=== PATIENT | female | born 1935 | race African-American/Black ===

== ENCOUNTER 2022-11-10 15:08 | Emergency (ER) | payer MEDICARE, MEDICAID, SELFPAY ==
[2022-11-10] VITALS (106 sets, daily range): BP systolic 76–162; BP diastolic 44–99; PULSE 0–149; RESP 0–39; TEMP 30.3–36.9; O2SAT 92–100
--- NOTE | ~2022-11-10 | CT_ITS ---
EXAMINATION: CT brain wo con DATE: 11/10/2022 18:02 INDICATION: Altered mental state. The urinary TECHNIQUE: Computed tomography (CT) of the head was performed without intravenous contrast. The mA wa s adjusted according to patient size. Iterative reconstruction technique was employed. Exam dose: 60 5.33 mGy-cm total exam DLP. COMPARISON: None FINDINGS: Bladder is bilateral vertebral artery, basilar artery and very prominent bilateral carotid siphon internal carotid artery calcifications. There is nonspecific diminished attenuation of the cerebral white matter, likely due to chronic small vessel ischemic changes. No intracranial mass lesion or hemorrhage or cerebrovascular accident is detected. No midline shift o r mass effect effect. No subdural or epidural hematoma. There is central and cortical cerebral and and cerebellar atrophy. No fracture or bone destruction of the cranial vault. Minimal left mastoid air cell opacification. Th e mastoid air cells and included paranasal sinuses are otherwise unremarkable. IMPRESSION: Cerebral atherosclerosis and chronic small vessel ischemic changes of the cerebral white matter Cerebral and cerebellar atrophy No acute intracranial finding Reviewed, dictated and finalized at [facility]. Reviewed, dictated and finalized at location A. EL WORKER
--- NOTE | ~2022-11-10 | XR_ITS ---
XR chest ET placement DATE: 11/10/2022 18:33 INDICATION: Post intubation TECHNIQUE: Portable AP chest on 11/10/2022 at 1830 hours COMPARISON: 11/10/2023 portable AP chest at 1726 hours FINDINGS: ET tube 4.5 cm above jane. NG tube in stomach. Right internal jugular central venous catheter in right atrium. Electrodes overlie the thoracic spinal canal. Cardiomegaly, aortic arch calcification. Pulmonary vascular congestion and redistribution. Prominence of the minor fissure suggesting subpleur al edema. There are bilateral pulmonary infiltrates, primarily in the central and lower lung zones, mildly incr eased since 1726 hours, likely due to pulmonary edema. Pneumonia is not excluded. Discoid atelectasis in the left midlung. Diffuse osteopenia. Degenerative spurring of the thoracic spine. IMPRESSION: ET and NG tubes have been placed and 1726 hours, in satisfactory position Congestive changes, mildly increased since 1726 hours Reviewed, dictated and finalized at [facility]. Reviewed, dictated and finalized at location A. HOUSE OPERATOR IMPRESSION: ET and NG tubes have been placed and 1726 hours, in satisfactory po sition Congestive changes, mildly increased since 1726 hours
--- NOTE | ~2022-11-10 | XR_ITS ---
EXAMINATION: XR chest port-a-cath/central DATE: 11/10/2022 17:30 INDICATION: Central line placement TECHNIQUE: Computed tomography (CT) of the head was performed without intravenous contrast. The mA wa s adjusted according to patient size. Iterative reconstruction technique was employed. Exam dose: mGy -cm total exam DLP. COMPARISON: 11/10/2022 portable AP chest FINDINGS: There is cardiomegaly. Aortic arch calcification. There is prominence of minor fissure suggesting subpleural edema. There is pulmonary vascular congest ion and redistribution. Is mild discoid atelectasis or scarring in the left midlung and mild infiltra te or atelectasis in the perihilar and lower lung zones, left greater than right. Right internal jugular central venous catheter in right atrium. Thoracic spinal leads. Diffuse idiopathic skeletal hyperostosis of the thoracic spine. Diffuse osteop enia. IMPRESSION: Cardiomegaly Congestive changes and bilateral infiltrates. The infiltrates may be due to pulmonary edema and/or pn eumonia, worse on the left Reviewed, dictated and finalized at [facility]. Reviewed, dictated and finalized at location A. OPERATIONS FORESTER IMPRESSION: Cardiomegaly Congestive changes and bilateral infiltrates. The infiltrates may be due to pul monary edema and/or pneumonia, worse on the left
--- NOTE | ~2022-11-10 | XR_ITS ---
Portable chest x-ray Comparison: None Clinical History: Hypotension, lethargy Findings: There is probable mild hazy pulmonary edema pattern bilaterally with minimal fluid in the right minor fissure. Cardiomediastinal silhouette is enlarged. Bones and soft tissues are unremarkab le. Impression: Mild pulmonary edema. Cardiomegaly. Reviewed, dictated and finalized at location . REL STOCK CHECKER Impression: Mild pulmonary edema. Cardiomegaly.
--- NOTE | ~2022-11-10 | XR_ITS ---
XR abdomen NG/feed tube insert DATE: 11/10/2022 18:33 INDICATION: Orogastric tube placement TECHNIQUE: Portable AP view on 11/10/2022 at 1831 hours COMPARISON: None FINDINGS: Orogastric tube tip is in the upper body of the stomach Battery pack overlies left abdomen with leads extending toward the thoracic spinal canal. Multilevel degenerative disease of the lumbar spine. IMPRESSION: Orogastric tube tip in upper body of stomach Reviewed, dictated and finalized at [facility]. Reviewed, dictated and finalized at location A. C D AREA SUPERVISOR
--- NOTE | ~2022-11-10 | CT_ITS ---
EXAMINATION: CTA abd aorta runoff DATE: 11/10/2022 18:09 INDICATION: Cold left lower extremity, unable to Doppler pulse. TECHNIQUE: Computed tomographic angiography (CTA) of the abdominal, pelvis, and both lower extremitie s was performed with 150 mL Omnipaque-350 intravenous contrast. Automated exposure control and iterat jonathan reconstruction technique were employed. The dose-length product was 1580.40 mGy-cm. Maximum inten sity projection 3D-reconstructions of the arteries were created by the technologist on a separate wor kstation. COMPARISON: None. FINDINGS: ABDOMINAL AORTA AND ITS BRANCHES: Atherosclerotic calcification of the abdominal aorta and its major branches. No significant aneurysm. No intramural thrombus. No significant stenosis. No dissection. PELVIC VASCULATURE: Atherosclerotic calcification of the pelvic arteries. No aneurysm. No significant stenosis. RIGHT LOWER EXTREMITY VASCULATURE: Status post [id number] amputation. Atherosclerotic arterial calcifications. No significant stenos is. LEFT LOWER EXTREMITY VASCULATURE: Atherosclerotic calcification. Severe focal stenosis in the mid superficial femoral artery, with foca l sections of moderate stenosis more distally. Motion artifact at the level of the knee partially obs cures the distal popliteal artery and trifurcation. The posterior tibial artery is occluded, likely a t the level of the trifurcation. Multifocal areas of absent flow in the anterior tibial artery, with some preservation of flow versus reconstitution distally, and flow noted below the level of the ankle . Flow is preserved in a narrow caliber peroneal artery below the level of the ankle. ADDITIONAL FINDINGS: Cardiomegaly. Bilateral pleural effusions. Bibasilar atelectasis. Gallbladder hydrops with wall hyper emia and pericholecystic fluid. Heterogeneous 2.4 cm pancreatic head mass. Bilateral renal atrophy. B ilateral renal cysts. Small volume ascites. The bladder is decompressed by a Jackson. Diffuse subcutane ous edema. Rim-enhancing fluid collection measuring 6.9 x 5.3 cm in the distal aspect of the right fe moral stump. IMPRESSION: 1. Occluded left posterior tibial artery. Occlusion/near occlusion of the proximal and mid left ante rior tibial artery, with preservation or reconstitution of flow distally. Severe focal stenosis in th e mid left femoral artery. Two vessel flow below the level of the left ankle. 2. Gallbladder hydrops, with wall hyperemia and pericholecystic fluid. Correlate with biliary labs an d right upper quadrant pain/tenderness. 3. 6.9 cm rim-enhancing fluid collection in the right femoral above knee amputation stump, which may represent a postsurgical collection versus abscess. 4. 2.4 cm pancreatic head mass, recommend MRI of the pancreas when the patient's clinical condition p ermits. 5. Anasarca. Reviewed, dictated and finalized at location K. GER OF BROADCAST CONTENT IMPRESSION: 1. Occluded left posterior tibial artery. Occlusion/near occlusion of the prox imal and mid left anterior tibial artery, with preservation or reconstitution o f flow distally. Severe focal stenosis in the mid left femoral artery. Two vess el flow below the level of the left ankle. 2. Gallbladder hydrops, with wall hyperemia and pericholecystic fluid. Correlat e with biliary labs and right upper quadrant pain/tenderness. 3. 6.9 cm rim-enhancing fluid collection in the right femoral above knee amputa tion stump, which may represent a postsurgical collection versus abscess. 4. 2.4 cm pancreatic head mass, recommend MRI of the pancreas when the patient' s clinical condition permits. 5. Anasarca.
--- NOTE | ~2022-11-10 | XR_ITS ---
EXAMINATION: XR chest ET placement DATE: 11/11/2022 09:06 INDICATION: Cardiac arrest. Endotracheal tube placement. Hypoxia. TECHNIQUE: frontal view of the chest was obtained. COMPARISON: Chest radiograph dated 11/10/2022 FINDINGS: Endotracheal tube tip 4.7 cm above the jane. Nasogastric tube with proximal side port in the body o f the stomach and distal tip collimated beyond the inferior margin of the [id number]. Right internal corrosion specialist al jugular central venous catheter with distal tip in the right atrium. Persistent interstitial and airspace opacities in the bilateral mid and lower lung zones and favor pu lmonary edema over pneumonia. Additional linear discoid atelectasis in the bilateral mid lung zones. Small bilateral pleural effusions. No pneumothorax. Cardiomegaly. There are a pair of spinal stimulat or leads projecting over the central canal of the mid to lower thoracic spine with distal tips at the level of T6 and T7. IMPRESSION: 1. Persistent opacities in the bilateral mid and lower lung zones and favor congestive heart failure related pulmonary edema over pneumonia. 2. Small bilateral pleural effusions. 3. Cardiomegaly. Reviewed, dictated and finalized at location A. SQL DEVELOPER IMPRESSION: 1. Persistent opacities in the bilateral mid and lower lung zones and favor con gestive heart failure related pulmonary edema over pneumonia. 2. Small bilateral pleural effusions. 3. Cardiomegaly.
--- NOTE | 2022-11-10 15:26 | ECG_ITS ---
Measurements Intervals Phillips Rate: 61 P: AR: 0 QRS: -11 QRSD: 68 T: 95 QT: 352 QTc: 357 Interpretive Statements ATRIAL FIBRILLATION BASELINE ARTIFACT LOW QRS VOLTAGE ABNORMAL ECG NO PREVIOUS ECG AVAILABLE FOR COMPARISON Electronically Signed On 11-12-2022 15:36:02 LENS FINISHER by Ramon Mobley M.D.
[2022-11-10 15:41] LABS: Glucose Point of Care 92 mg/dl (65-105)
--- NOTE | 2022-11-10 15:51 | ED.WEAKNESS ---
HPI - Weakness General Chief complaint: Weakness <Corrine Ocampo PA-C - Last Filed: 11/11/22 20:00> Stated complaint: lethargy <NAEEM Siddiqui Last Filed: 11/11/22 20:00> Time Seen by Provider: 11/10/22 15:21 <Corrine Ocampo PA-C - Last Filed: 11/11/22 20:00> Source: patient and EMS <NAEEM Siddiqui Last Filed: 11/11/22 20:00> Mode of arrival: EMS <NAEEM Siddiqui Last Filed: 11/11/22 20:00> Limitations: altered mental status <NAEEM Siddiqui Last Filed: 11/11/22 20:00> History of Present Illness HPI Narrative: This is a 86 year old female that presents to the ER for lethargy. Reportedly was in the middle of her dialysis treatment and started to become less responsive. They sent her in for further evaluation. She is responsive to sternal rub. Unable to provide any history. <NAEEM Siddiqui Last Filed: 11/11/22 20:00> Related Data Home medications: Home Medications Medication Instructions Recorded Confirmed acetaminophen 500 mg tablet mg 11/11/22 albuterol sulfate 90 mcg/actuation inhalation 11/11/22 aerosol inhaler apixaban 2.5 mg tablet (Eliquis) mg 11/11/22 atorvastatin 40 mg tablet mg 11/11/22 gabapentin 100 mg capsule mg 11/11/22 levetiracetam 500 mg tablet mg PO 11/11/22 levothyroxine 200 mcg tablet mcg 11/11/22 midodrine 10 mg tablet mg 11/11/22 mirtazapine 7.5 mg tablet mg 11/11/22 pantoprazole 40 mg tablet,delayed mg PO 11/11/22 release <NAEEM Siddiqui Last Filed: 11/11/22 20:00> Allergies/Adverse reactions: Allergies Allergy/AdvReac Type Severity Reaction Status Date / Time enalaprilat [From Vasotec] Allergy Other Verified 11/10/22 16:47 oxaprozin [From Daypro] Allergy Other Verified 11/10/22 16:47 <Corrine Ocampo PA-C - Last Filed: 11/11/22 20:00> Review of Systems Review of Systems: ROS unobtainable: Yes unobtainable due to mental status <Corrine Ocampo PA-C - Last Filed: 11/11/22 20:00> PMFSH Past Medical History Medical History: Medical History (Updated 11/12/22 @ 00:00 by Adelina Mcnulty) End-stage renal disease on hemodialysis Hypotension of hemodialysis Hypothyroidism Osteomyelitis Peripheral artery disease Peripheral neuropathy <NAEEM Siddiqui Last Filed: 11/11/22 20:00> Surgical History Surgical History: Surgical History (Updated 11/11/22 @ 00:37 by Mehreen Carpio DO) Above knee amputation of right lower extremity Status post cataract extraction of both eyes with insertion of intraocular lens Status post creation of arteriovenous fistula <Corrine Ocampo PA-C - Last Filed: 11/11/22 20:00> Family History Family History: Family History Other Unknown family medical history <Corrine Ocampo PA-C - Last Filed: 11/11/22 20:00> Social History Social History: Social History (Updated 11/11/22 @ 00:38 by Mehreen Carpio DO) Social History: The family reports that the patient lives at a retirement. She has never smoked or drink alcohol to their knowledge. The patient's son who was the power of assistant city attorney states that the patient was post be a DNR/DNI however the patient's advanced directive paperwork from both dialysis center and the retirement indicated the patient was a full code. At this time the family states that they would not want the patient to have CPR again if her heart were to stop. She does remain intubated at this time. Smoking status: Never smoker Living arrangements: retirement <Corrine Ocampo PA-C - Last Filed: 11/11/22 20:00> Exam Narrative: GENERAL: Lethargic, well-nourished HEAD: Normocephalic, atraumatic. EYES: PERRLA and EOMI. ENT: Nares clear, no rhinorrhea or epistaxis. Mucous membranes moist. Oropharynx without tonsillar hypertrophy exudate or other lesions. Bilateral TMs pearly galaviz non-bulging NECK: Supple. No kulwinder
[2022-11-10] MEDS: SODIUM CHLORIDE 0.9% IV 500 ML 999 ML IV CONT (16:00)
[2022-11-10 16:38] LABS: Basophils Percent Auto 0.9 % (0.2-1.2); Eosinophils Absolute Auto 0.1 K/mm3 (0-0.3); Eosinophils Percent Auto 2.9 % (0-4.4); Hematocrit 29.2 % (37.0-47.0); Hemoglobin 8.9 g/dL (12.0-15.0); Immature Granulocyte Absolute 0.01 K/mm3 (0.00-0.031); Immature Granulocyte Percent A 0.3 % (0-0.5); Immature Platelet Fraction Pct 15.4 % (0.9-11.2); Lymphocytes Absolute Auto 0.67 K/mm3 (0.9-3.2); Lymphocytes Percent Auto 19.3 % (18.3-44.2); Mean Corpuscular HGB Conc 30.5 g/dl (32-36); Mean Corpuscular Hemoglobin 33.3 pg (26-34); Mean Corpuscular Volume 109.4 fl (80-100); Mean Platelet Volume 13.1 fl (7.4-10.4); Monocytes Absolute Auto 0.4 K/mm3 (0.1-0.6); Monocytes Percent Auto 11.5 % (2.6-8.5); Neutrophils Absolute Auto 2.3 K/mm3 (1.3-6.7); Neutrophils Percent Auto 65.1 % (45.5-73.1); Platelet Count Result 94 k/mm3 (150-375); Red Blood Count 2.67 M/mm3 (4.2-5.4); Red Cell Distribution Width 18.7 % (11.5-14.5); White Blood Count 3.5 K/mm3 (4.5-10.0)
[2022-11-10 16:45] LABS: INR 1.2; Prothrombin Time 14.7 Seconds (11.1-14.7)
[2022-11-10 16:46] LABS: Partial Thromboplastin Time 41.5 SECONDS (22.3-36.8)
[2022-11-10 16:48] LABS: Albumin Level 3.3 g/dL (3.5-5.1); Alkaline Phosphatase 150 U/L (38-126); Anion Gap 5 mmol/L (8-16); Aspartate Amino Transferase 41 U/L (14-36); Bilirubin,Total 0.7 mg/dL (0.2-1.3); Blood Urea Nitrogen 17 mg/dL (7-17); CRP 2.3 mg/dL (<1.0); Calcium 8.3 mg/dL (8.4-10.2); Carbon Dioxide 35 mmol/L (22-30); Chloride 96 mmol/L (98-107); Estimated Glomerular Filt Rate 24; Ethanol < 10 mg/dL (<10); Glucose 91 mg/dL (65-110); Potassium 4.3 mmol/L (3.4-5.0); Sodium 136 mmol/L (137-145)
[2022-11-10 16:51] LABS: Macrocytosis 1+ (NORMAL); Platelet Estimate Decreased (Adequate)
[2022-11-10 16:52] LABS: Ovalocytes 1+ (NORMAL); Schistocytes None Seen (NORMAL); Target Cells 1+ (NORMAL)
--- NOTE | 2022-11-10 16:55 | PC.NURSE ---
ERP and Pa attempting central line insertion.
[2022-11-10 17:04] LABS: Alanine Aminotransferase 22 U/L (6-35)
[2022-11-10 18:05] LABS: Lactic Acid Reflex 1.3 mmol/L (0.7-2.0)
--- NOTE | 2022-11-10 18:10 | PC.NURSE ---
see code sheet
--- NOTE | 2022-11-10 18:17 | PC.NURSE ---
[address] on stretcher and RN. pt. on portable monitor. pt. unresponsive, not answering questions, pt, HR dropped to 30 no pulse felt. RN started cpr. code called erp at bedside. 1814 pt. hitting staff during compressions pt. found to be in sinus tach at 137 erp asked RN to set up for pt. intubation. 1817 20 mg etomidate administered ivp vorb ERP ganga 1818 100 mg rocuronium administered ivp vorb erp ganga. 1818 erp intubated pt. w/ 7.5 et tube measuring 22 lip. erp reports bilat breath sounds and good color change.
[2022-11-10 18:43] LABS: Influenza A QL RT-PCR Negative (Negative); Influenza B QL RT-PCR Negative (Negative); SARS-CoV-2 RNA PCR Negative
--- NOTE | 2022-11-10 19:10 | PC.NURSE ---
Patient report received from JAYRO Soto. All questions answered and care of patient assumed.
[2022-11-10 19:29] LABS: Glucose Point of Care 112 mg/dl (65-105)
[2022-11-10 19:45] LABS: Alveolar/Arterial O2 Gradient 340.3 mmHg; Base Excess ABG 8.1 mEq/l (+/-2.0); Fractional Inspired Oxygen 100 %; HCO3 ABG 29.8 mEq/l (22.0-26.0); Methemoglobin ABG 0.3 %THb (0-1.5); Oxygen Content ABG 13.6 %vol (16.0-22.0); Oxygen Saturation ABG 99.8 % (95.0-100.0); PCO2 ABG 30.8 mmHg (35.0-45.0); PO2 ABG 341.9 mmHg (80.0-100.0); PO2 FiO2 Ratio Arterial Blood 3.42 %; Reduced Hemoglobin 0.7 %THb (0-5.0); Total Hemoglobin 9.2 g/dL (12.0-18.0)
[2022-11-10 19:49] LABS: Device VENTILATOR; Modified Allen's Test Pass; Site Drawn RIGHT RADIAL; pH ABG 7.604 (7.350-7.450)
[2022-11-10 19:50] LABS: Arterial Blood Gas PEEP 5 cmH2O; Arterial Blood Gas Tidal Volume 350 ml; Arterial Blood Gas Vent Mode CMV; Arterial Blood Gas Ventilator rate 20 /MIN
[2022-11-10 20:26] LABS: Lipase 93 U/L (23-300)
--- NOTE | 2022-11-10 20:59 | PC.NURSE ---
Hospitalist at bedside to assess pt.
[2022-11-10 21:03] LABS: Total Triiodothyronine (T3) 0.61 NG/ML (0.97-1.69)
--- NOTE | 2022-11-10 21:50 | PC.NURSE ---
RT at bedside.
[2022-11-10] MEDS: RAPID SEQUENCE INTUBATION KIT 1 EACH (21:54)
[2022-11-10] MEDS: SODIUM CHLORIDE 0.9% IV 500 ML 999 ML (22:40)
[2022-11-10] MEDS: NOREPINEPHRINE 8 MG/D5W 250 ML 8 MG/250 ML BAG 9.38 MG IV CONT (23:56)
[2022-11-11] VITALS (236 sets, daily range): BP systolic 48–164; BP diastolic 29–98; PULSE 0–115; RESP 0–35; TEMP 35.3–37.1; O2SAT 11–100
--- NOTE | 2022-11-11 00:03 | PM.IMCN ---
Assessment and Plan Assessment and plan (1) Septic shock: Code(s): A41.9 - Sepsis, unspecified organism; R65.21 - Severe sepsis with septic shock Status: Acute (2) Cardiac arrest: Code(s): I46.9 - Cardiac arrest, cause unspecified Status: Acute (3) Cardiac arrest with successful resuscitation: Code(s): I46.9 - Cardiac arrest, cause unspecified Status: Acute (4) Mass of pancreas: Code(s): K86.89 - Other specified diseases of pancreas Status: Acute (5) Femoral artery occlusion, left: Code(s): I70.202 - Unspecified atherosclerosis of [place] arteries of extremities, left leg Status: Acute (6) End-stage renal disease on hemodialysis: Code(s): N18.6 - End stage renal disease; Z99.2 - Dependence on renal dialysis Status: Acute (7) Above knee amputation of right lower extremity: Code(s): S78.111A - Complete traumatic amputation at level between right hip and knee, initial encounter Status: Acute Plan Patient has septic shock. Potential sources of infection include bacteremia given patient is dialysis patient has AV fistula in place she is at high risk for bacteremia. However she also has a 5.3 cm rim enhancing collection in the stump of her right above the amputation site so superimposed infection cannot be excluded. Patient was started on empiric antibiotic therapy with cefepime and vancomycin. Blood cultures have been obtained. The patient is no longer profoundly hypothermic due to Nicholas Hugger. Lactic acid was unremarkable. Blood pressures have stabilized on Levophed. I would avoid further IV fluid boluses given patient's history of end-stage renal disease with absent urine output at baseline. Given that the patient had recent surgical procedure at outside facility the patient will benefit from returning to said facility for management by the surgical team at that facility. Patient does have femoral arterial occlusion which he is likely chronic or acute on chronic in nature. She is not clinically stable for acute vascular intervention at this time. The vascular surgeon at the outside facility did not want the patient placed on heparin due to high risk of possible intercranial bleed and difficulty assessing the patient's neurologic status given that she is intubated and sedated. The patient had cardiac arrest with successful resuscitation. Differential for patient's cardiac arrest includes unanticipated cardiac arrhythmia given patient's chronic illness verses result of septic shock. Patient is not following commands but is responsive. I would recommend targeted temperature therapy but the patient was already profoundly hypothermic on presentation to the ER and I suspect this severe hypothermia is likely what contributed to the patient's cardiac arrest. Given the patient's overall poor baseline medical condition her prognosis is poor. CT demonstrated possible pancreatic mass. Patient is not stable for evaluation of this at this time. I did not know about the intra-abdominal mass at the time I talked to the patient's family and I do not know if they are aware of the pancreatic mass at this time. On exam the patient has protuberant eyes and the family states that it this is due to the patient's thyroid disease. However patient is actually noted to be significantly hypothyroid. On review external medication reconciliation the patient was previously on 200 mcg of levothyroxine as outpatient. Will give the patient 1 dose of 150 mg of IV levothyroxine. Patient does have end-stage renal disease on hemodialysis. Her electrolytes are currently stable. No need for emergent dialysis. Stress ulcer prophylaxis provided with Protonix 40 mg IV daily. 150 minutes spent in critical care activities. This includes multiple discussions with ER team, hotel maintenance technician and nursing screen making supervisor. Due to a high probability of clinically significant, life threatening deterioration,
--- NOTE | 2022-11-11 00:28 | PC.NURSE ---
Levophed gtt decreased to 4 mcg/min at this time r/t b/p of 159/91.
[2022-11-11] MEDS: FENTANYL 2,500MCG/NS250ML(*CRX 2,500 MCG/250 ML BAG IV CONT (00:43)
[2022-11-11] MEDS: SODIUM CHLORIDE 0.9% IV 1,000 ML 150 ML IV CONT (00:45)
[2022-11-11] MEDS: MIDAZOLAM HCL (*CRX) 2 MG/2 ML VIAL IV PUSH ×2 (01:10→04:15)
[2022-11-11] MEDS: MIDAZOLAM 100MG/NS 100ML(*CRX) 100 MG/100 ML BAG IV CONT (02:18)
--- NOTE | 2022-11-11 04:53 | PC.NURSE ---
spoke with MD Nam and primary RN about titration for Fentanyl and Versed. See titration documentation
[2022-11-11] MEDS: LEVOTHYROXINE SODIUM INJ 100 MCG/5 ML VIAL 150 MCG IV PUSH (06:52)
--- NOTE | 2022-11-11 07:00 | PC.NURSE ---
Assumed care of pt. at this time. Report from JAYRO Rodrigues
[2022-11-11 07:19] LABS: Add Urine Microscopic? YES; Appearance Urine Cloudy (Clear); Bilirubin Urine 1+ (Negative); Blood Urine 3+ (Negative); Color Urine Yellow (Yellow); Glucose Urine UA Negative (Negative); Ketones Urine Trace mg/dL (Negative); Leukocyte Esterase Ur 3+ LEU/UL (Negative); Nitrate Urine Positive (Negative); Protein Urine 3+ mg/dL (Negative); Urobilinogen Urine 0.2 mg/dL (<2.0)
--- NOTE | 2022-11-11 07:26 | PC.NURSE ---
Patient report given to JAYRO Soto. All questions answered and care of patient transferred.
[2022-11-11 07:33] LABS: Bacteria Urine Trace /hpf; Mucus Urine Rare /lpf; RBC Urine >75 /hpf (0-2); Squamous Epithelial Cell Urine Few /hpf (Few); WBC Urine >75 /hpf
--- NOTE | 2022-11-11 07:34 | PC.NURSE ---
Patient's son Aquilino contacted with update. Verbal consent received to obtain records from [facility].
[2022-11-11 07:36] LABS: Amphetamine Screen Urine Negative (Negative); Barbiturate Screen Urine Negative (Negative); Benzodiazepines Screen Urine Negative (Negative); Cannabinoid Screen Urine Negative (Negative); Cocaine Screen Urine Negative (Negative); Methadone Screen Urine Negative (Negative); Opiate Screen Urine Negative (Negative); Phencyclidine Screen Urine Negative (Negative)
--- NOTE | 2022-11-11 09:13 | PC.NURSE ---
pt. pulse oxygen low 80's pt. fio2 increased to 60% erp made aware
[2022-11-11 09:17] LABS: Basophils Percent Auto 0.5 % (0.2-1.2); Eosinophils Percent Auto 0.7 % (0-4.4); Hematocrit 26.9 % (37.0-47.0); Hemoglobin 8.4 g/dL (12.0-15.0); Immature Granulocyte Absolute 0.02 K/mm3 (0.00-0.031); Immature Granulocyte Percent A 0.3 % (0-0.5); Immature Platelet Fraction Pct 7.4 % (0.9-11.2); Lymphocytes Absolute Auto 0.63 K/mm3 (0.9-3.2); Lymphocytes Percent Auto 10.8 % (18.3-44.2); Mean Corpuscular HGB Conc 31.2 g/dl (32-36); Mean Corpuscular Hemoglobin 33.5 pg (26-34); Mean Corpuscular Volume 107.2 fl (80-100); Mean Platelet Volume 11.2 fl (7.4-10.4); Monocytes Absolute Auto 0.7 K/mm3 (0.1-0.6); Monocytes Percent Auto 11.2 % (2.6-8.5); Neutrophils Absolute Auto 4.5 K/mm3 (1.3-6.7); Neutrophils Percent Auto 76.5 % (45.5-73.1); Nucleated Red Blood Cells Perc 0.3 % (0.0-0.2); Platelet Count Result 102 k/mm3 (150-375); Red Blood Count 2.51 M/mm3 (4.2-5.4); White Blood Count 5.8 K/mm3 (4.5-10.0)
[2022-11-11 09:25] LABS: Alanine Aminotransferase 20 U/L (6-35); Albumin Level 2.8 g/dL (3.5-5.1); Alkaline Phosphatase 130 U/L (38-126); Anion Gap 8 mmol/L (8-16); Aspartate Amino Transferase 41 U/L (14-36); Bilirubin,Total 0.9 mg/dL (0.2-1.3); Blood Urea Nitrogen 20 mg/dL (7-17); Carbon Dioxide 26 mmol/L (22-30); Chloride 100 mmol/L (98-107); Estimated CRCL calculation 9 ml/min; Estimated Glomerular Filt Rate 19; Glucose 156 mg/dL (65-110); Potassium 3.7 mmol/L (3.4-5.0); Sodium 134 mmol/L (137-145)
[2022-11-11 09:40] LABS: Anisocytosis 1+ (NORMAL); Ovalocytes 1+ (NORMAL); Platelet Estimate Adequate (Adequate); Target Cells 1+ (NORMAL)
[2022-11-11 09:41] LABS: Schistocytes None Seen (NORMAL)
[2022-11-11] MEDS: HEPARIN SODIUM 5,000 UNITS/ML VIAL 5000 UNITS SUB-Q (10:17)
[2022-11-11] MEDS: PANTOPRAZOLE SODIUM IV 40 MG VIAL IV PUSH (10:20)
[2022-11-11 10:47] LABS: Alveolar/Arterial O2 Gradient 307.5 mmHg; Base Excess ABG 5.4 mEq/l (+/-2.0); Fractional Inspired Oxygen 90 %; HCO3 ABG 25.3 mEq/l (22.0-26.0); Oxygen Content ABG 14.6 %vol (16.0-22.0); Oxygen Saturation ABG 99.8 % (95.0-100.0); Oxyhemoglobin 98.3 % THb (90.0-100.0); PO2 ABG 310.6 mmHg (80.0-100.0); PO2 FiO2 Ratio Arterial Blood 3.45 %
[2022-11-11 10:50] LABS: Arterial Blood Gas Ventilator rate 20 /MIN; Device VENTILATOR; Modified Allen's Test Pass; Site Drawn RIGHT BRACHIAL
[2022-11-11 10:51] LABS: Arterial Blood Gas PEEP 6 cmH2O; Arterial Blood Gas Tidal Volume 350 ml; Arterial Blood Gas Vent Mode CMV
--- NOTE | 2022-11-11 11:44 | PC.NURSE ---
pt. son at bedside. ERP at pt. bedside provided education and information in regards to pt. status. pt. family member reports he would like to make some phone call to family. pt. guided to family service room and informed to ask for assistance if he needs it.
--- NOTE | 2022-11-11 12:44 | PC.NURSE ---
pt. additional family at bedside. RN educated pt. family on pt. status. questions answered.
--- NOTE | 2022-11-11 14:24 | PC.NURSE ---
called the [facility] [id number], no bed for today.
--- NOTE | 2022-11-11 15:30 | PC.NURSE ---
pt. refusing hospice states he would like to transition pt. to comfort care and start the end of life process at this time. ERP made aware. of pt. requests.
--- NOTE | 2022-11-11 16:20 | PC.NURSE ---
per family request pt. made comfort care. all life sustaining measures have been stopped. pt. given medication for anxiety and pain. RT removed pt. ET tube.
[2022-11-11] MEDS: LORazepam INJ (*CRX) 2 MG/ML VIAL 1 MG IV PUSH ×2 (16:36→16:55)
[2022-11-11] MEDS: MORPHINE SULFATE (*CRX) 2 MG/ML INJ IV PUSH (16:36)
[2022-11-11] MEDS: MORPHINE SULFATE (*CRX) 2 MG/ML INJ 4 MG IV PUSH (17:02)
[2022-11-11] MEDS: SCOPOLAMINE 1.5 MG PATCH TRANSDERM (17:02)
--- NOTE | 2022-11-11 17:34 | PC.NURSE ---
ERP at bedside. pt. has no pulses SAL Stout pt. at [phone]
--- NOTE | 2022-11-11 17:36 | PC.NURSE ---
TID [id number]
--- NOTE | 2022-11-11 17:50 | PC.NURSE ---
pt.. belongings given to Vaishali and conner pt. family.
--- NOTE | 2022-11-11 18:07 | PC.NURSE ---
spoke w/ Aram at [facility] pt. information and son information given
--- NOTE | 2022-11-11 18:45 | PC.NURSE ---
all lines, tubes and drains removed from pt. [place] [facility] [place]
== END 2022-11-11 18:45 | disposition expired ==
PROVIDERS: Physician Assistant; Emergency Provider Emergency Medicine
DX: A41.9 Sepsis, unspecified organism (principal); R65.21 Severe sepsis with septic shock; I46.9 Cardiac arrest, cause unspecified; N18.6 End stage renal disease; Z99.2 Dependence on renal dialysis; K86.89 Other specified diseases of pancreas; I70.202 Unspecified atherosclerosis of native arteries of extremities, left leg; Z20.822 Contact with and (suspected) exposure to COVID-19; Z89.611 Acquired absence of right leg above knee; Z98.42 Cataract extraction status, left eye; Z98.41 Cataract extraction status, right eye; Z96.1 Presence of intraocular lens; G62.9 Polyneuropathy, unspecified; Z79.01 Long term (current) use of anticoagulants; Z79.899 Other long term (current) drug therapy; I48.91 Unspecified atrial fibrillation; I51.7 Cardiomegaly; J81.1 Chronic pulmonary edema; I67.2 Cerebral atherosclerosis; K82.1 Hydrops of gallbladder
CPT/HCPCS: 31500; 36415; 36556; 36600; 51702; 70450; 71045; 75635; 80053; 80307; 81001; 82375; 82805; 82948; 83050; 83605; 83690; 84439; 84443; 84480; 85025; 85055; 85610; 85730; 86140; 87040; 87086; 87636; 93005; 96361; 96365; 96366; 96367; 96368; 96372; 96375; 96376; 99291; A9270; C1751; C9113; J0171; J0692; J1644; J2060; J2250; J2270; J3010; J3370; J3475; J7030; J7040; Q9967